=== PATIENT | male | born 1975 | race Caucasian/White ===

== ENCOUNTER 2019-08-09 13:14 | Emergency (ER) | payer MEDICARE, MEDICAID, SELFPAY ==
[2019-08-09 13:24] VITALS: BP 146/99; PULSE 100; RESP 18; TEMP 36.8; O2SAT 98; BMI 25.7
--- NOTE | 2019-08-09 13:35 | XR_ITS ---
WS: [id number] RIGHT HAND: 3 VIEW(S) TECHNIQUE: PA, oblique and lateral. HISTORY: infection right thumb COMPARISON: None available. Abnormal appearance of the distal phalanx of the first finger. There is a lucency involving a signifi cant portion of the distal phalanx with interruption of the cortex. There is a soft tissue ulceration measuring 18 mm adjacent to the proximal phalanx of the first finger. XR/XR hand RT min 3V* [id number] IMPRESSION: 1. Extensive soft tissue edema and ulceration surrounding the first finger. Ul ceration measures 18 mm adjacent to the proximal phalanx. 2. Suspicious for osteomyelitis distal phalanx of the first finger. No histor y of trauma therefore this is less likely fracture.
--- NOTE | 2019-08-09 13:48 | ED_ITS ---
HPI - Wound/Laceration General: Chief Complaint: Wound/Laceration Stated Complaint: RIGHT THUMB BAD INFECTION Time Seen by Provider: 08/09/19 13:27 History of Present Illness: HPI narrative: Patient is a 44-year-old male who presents today with an infection in his right thumb. He said the symptoms started about 3 weeks ago and he has been seen several times in the ER in [place]. On the first visit he was told it was a felon and the doctor cut open the pad o f his thumb. He was put on antibiotics but he does not know what kind. He went back about a week later and the antibiotics were changed to the one he is currently on. He describes it as a large white pill. He does not know what it is called. He says the thumb looks somewhat better and that it is not as swollen but the entire thumb is red, fluctuant with some open areas and some drainage at the base of the thumb. He is here today because of the throbbing pain in the thumb and concerns that is just not going away. He denies IV drug use. He denies diabetes. He does not recall any specific injury but does think he might of gotten a metal shaving in the finger the day before all this started. He is left-handed Onset (ago): week(s) (3) Extremity Location: Right: hand Patient tetanus UTD: Yes Associated symptoms: Reports numbness; Denies chills, fever(s), foreign body sensation, nausea or vomiting Review of Systems General: Reports: 10 or more systems reviewed and unremarkable except in HPI and below Const: Denies: fever(s) or chills Eyes: Denies: change in vision ENMT: Denies: odynophagia Card: Denies: chest pain or swelling of feet/ankles Resp: Denies: dyspnea, productive cough or non-productive cough GI: Denies: abdominal pain, nausea or vomiting : Denies: flank pain Musc: Reports: extremity pain and limited range of motion; Denies: neck pain or back pain Skin/Breast: Denies: rash Neuro: Denies: headache(s), numbness in extremities or weakness in extremities Marshall/Lymph: Denies: easy bruising or easy bleeding PFSH ED PFSH: Social History Smoking and tobacco status: current every day smoker Physical Exam Const: COMMON NORMALS: no acute distress, patient oriented x3, no limitations and alert GENERAL APPEARANCE: cooperative and comfortable HENMT: HEAD & SCALP: normal to inspection FACE & SINUS: normal facial exam Eye: GENERAL EYE: appearance normal, both eyes and all related structures Neck/C-Spine: COMMON NORMALS: supple, no meningeal signs and no JVD Chest: COMMONS NORMALS: normal inspection of the chest Resp: COMMON NORMALS: normal respiratory effort, No use of accessory muscles and clear to auscultation bilaterally AUSCULTATION: clear to auscultation bilaterally Cardio: COMMON NORMALS: no JVD, regular rate, regular rhythm and No murmurs present (Cardio) RATE: regular rate RHYTHM: regular rhythm Back/Pelvis: COMMON NORMALS: thoracic and lumbar spine normal to inspection Extremity: COMMON NORMALS: normal to inspection NARRATIVE EXTREMITY EXAM: Except the right thumb which is quite swollen, the pad of the thumb has a brown waxy appearance to the skin and the proximal phalanx on the palmar side has some fluctuance and appears to be pockets of purulence under the skin. There is an open area on the dorsal surface of the proximal phalanx which is draining purulent discharge. There is no sensation over the distal pad of the thumb. Neuro: COMMON NORMALS: patient oriented x3, moves all extremities, no focal motor deficits and no sensory deficits noted SENSORIUM/ORIENTATION: Yes alert MENINGEAL SIGNS: Yes no meningeal signs Psych: COMMON NORMALS: mental status grossly normal, cooperative and normal affect Skin: COMMON NORMALS: no rashes or lesions noted and turgor normal GENERAL SKIN EXAM: no rashes or lesions noted and turgor normal Course ED course: I spoke with Dr. Michele at [facility]. He would like to see the patient in his office tomorrow at 1 PM. The patient says he will be able to make it up there. For now we will have him continue his current antibiotic. I will give him some pain medicine. We discussed that this could lead to the loss of his thumb if he does not get it appropriately treated. His labs look pretty good with a CRP of 1.2 and only slight elevation in his ESR. White count is normal. X-ray however raise a concern for possible early osteomyelitis. Vital Signs: Vital signs: Vital Signs Temperature 98.3 F 08/09/19 13:24 Pulse Rate 97 08/09/19 15:37 Respiratory Rate 18 08/09/19 15:37 Blood Pressure 142/96 08/09/19 15:37 Pulse Oximetry 98 08/09/19 15:37 MDM - Wound/Laceration Lab Data: Labs: Lab Results 08/09/19 08/09/19 08/09/19 Range/Units 13:55 13:55 13:55 WBC 9.9 (4.0-10.0) 10^3/ uL RBC 4.98 (4.1-5.3) 10^6/u L Hgb 14.8 (11.7-16.6) g/dL Hct 44.6 (42.0-52.0) % MCV 89.6 (80-94) fL MCH 29.7 (28.0-34.0) pg MCHC 33.2 (30.0-36.0) g/dL RDW 11.9 L (12.1-15.1) % Plt Count 518 H (130-400) 10^3/c mm MPV 8.4 (7.4-10.4) fL Neut % (Auto) 60.0 % Lymph % (Auto) 28.9 % Burnett % (Auto) 6.3 % Eos % (Auto) 3.0 % Baso % (Auto) 0.7 % Neut # (Auto) 5.9 (1.8-7.7) 10^3/u L Lymph # (Auto) 2.9 (0.8-4.8) 10^3/u L Burnett # (Auto) 0.6 (0.2-0.9) 10^3/u L Eos # (Auto) 0.3 (0.0-0.8) 10^3/u L Baso # (Auto) 0.1 (0.0-0.1) 10^3/u L Nucleated RBC % (a uto) 0 % Nucleated RBCs # 0.0 /100WBC ESR 25 H (0-10) mm/hr Sodium 140 (136-145) mmol/L Potassium 4.1 (3.5-5.1) mmol/L Chloride 103 (98-107) mmol/L Carbon Dioxide 24 (22-29) mmol/L Anion Gap 17.1 (5-19) BUN 13 (6-20) mg/dL Creatinine 0.9 (0.7-1.2) mg/dL GFR Calculation 90.8 (90-130) mL/min Glucose 101 (65-115) mg/dL Calculated Osmolal ity 286 (285-295) mOsm/k g Calcium 10.2 (8.5-10.5) mg/dL Total Bilirubin 0.4 (0.15-1.2) mg/dL AST 26 (0-40) U/L ALT 28 (0-41) U/L Alkaline Phosphata se 100 (40-130) IU/L C-Reactive Protein 1.2 (0.0-4.9) mg/L Total Protein 7.8 (6.6-8.7) g/dL Albumin 4.5 (3.5-5.2) g/dL Globulin 3.3 (1.3-4.6) g/dL Discharge Plan Discharge Patient Disposition: Home, Self-Care Clinical Impression: Cellulitis and abscess of finger, unspecified Condition: Stable Prescriptions: New hydrocodone-acetaminophen 5-325 mg tablet 1 tab PO Q6H PRN (Reason: pain) Qty: 14 RF: 0 No Action ciprofloxacin HCl 500 mg tablet 500 mg PO BID RF: 0 sulfamethoxazole-trimethoprim 800-160 mg tablet 2 tab PO BID RF: 0 Ultram 50 mg tablet 50 mg PO Q6H PRN (Reason: Pain) RF: 0 Discharge Orders: Discharge Order (Routine); Ordered 08/09/19 Ordered By: Maday Fernandez Referrals: Devin Lawson MD [Referring] - 08/10/19 1:00 pm ([facility], third floor. Bring the disk with the xray and the papers from today's visit. Also bring the antibiotic bottles from the other ED visits. ) Discharge Diet: Usual diet Discharge Activity: Resume usual activity Patient Instructions: Cellulitis (ED) Activity Restrictions/Additional Instructions: Be sure to follow up tomorrow with Dr. Lawson in [place]. Discharge Date/Time: 08/09/19 15:44 Coding Level of Care Code ED Insurance Service Representative for Thania Fwd Exam Comprehensive
[2019-08-09 14:05] LABS: Basophils # 0.1 10^3/uL (0.0-0.1); Basophils % 0.7 %; Eosinophils # 0.3 10^3/uL (0.0-0.8); Hematocrit 44.6 % (42.0-52.0); Hemoglobin 14.8 g/dL (11.7-16.6); Lymphocytes # 2.9 10^3/uL (0.8-4.8); Lymphocytes % 28.9 %; Mean Corpuscular HGB Conc 33.2 g/dL (30.0-36.0); Mean Corpuscular Hemoglobin 29.7 pg (28.0-34.0); Mean Corpuscular Volume 89.6 fL (80-94); Mean Platelet Volume 8.4 fL (7.4-10.4); Monocytes # 0.6 10^3/uL (0.2-0.9); Monocytes % 6.3 %; Neutrophils # 5.9 10^3/uL (1.8-7.7); Nucleated Red Blood Cells % 0 %; Platelet Count 518 10^3/cmm (130-400); Red Blood Count 4.98 10^6/uL (4.1-5.3); Red Cell Distribution Width 11.9 % (12.1-15.1); White Blood Count 9.9 10^3/uL (4.0-10.0)
[2019-08-09 14:28] LABS: Alanine Aminotransferase 28 U/L (0-41); Albumin Level 4.5 g/dL (3.5-5.2); Alkaline Phosphatase 100 IU/L (40-130); Anion Gap 17.1 (5-19); Aspartate Amino Transferase 26 U/L (0-40); Blood Urea Nitrogen 13 mg/dL (6-20); C Reactive Protein 1.2 mg/L (0.0-4.9); Calcium 10.2 mg/dL (8.5-10.5); Carbon Dioxide 24 mmol/L (22-29); Chloride 103 mmol/L (98-107); Globulin 3.3 g/dL (1.3-4.6); Glomerular Filtration Rate 90.8 mL/min (90-130); Glucose 101 mg/dL (65-115); Osmolality Calculated 286 mOsm/kg (285-295); Potassium 4.1 mmol/L (3.5-5.1); Sodium 140 mmol/L (136-145); Total Bilirubin 0.4 mg/dL (0.15-1.2); Total Protein 7.8 g/dL (6.6-8.7)
[2019-08-09 14:52] LABS: Erythrocyte Sedimentation Rate 25 mm/hr (0-10)
[2019-08-09] MEDS: HYDROcodone-acetaminophen 5-325 mg Tablet 2 TAB PO (15:31)
[2019-08-09 15:37] VITALS: BP 142/96; PULSE 97; RESP 18; O2SAT 98
== END 2019-08-09 15:44 | disposition home or self-care (01) ==
PROVIDERS: Emergency Provider Emergency Medicine
DX: L03.011 Cellulitis of right finger (principal); L02.511 Cutaneous abscess of right hand; F17.210 Nicotine dependence, cigarettes, uncomplicated
CPT/HCPCS: 12345; 36415; 73130; 80053; 85025; 85651; 86140; 99281; 99283

== ENCOUNTER 2023-09-26 22:35 | Emergency (ER) | payer MEDICARE, MEDICAID, SELFPAY ==
[2023-09-26 22:43] VITALS: BP 125/78; PULSE 82; RESP 17; TEMP 37; O2SAT 97; BMI 24.7
--- NOTE | 2023-09-26 23:44 | W.ED.BACK ---
HPI - Back Pain/Injury General: Chief Complaint: Back Pain/Injury Stated Complaint: Lower back pain Time Seen by Provider: 09/26/23 22:37 History of Present Illness: 48-year-old male patient comes in for lower back pain. On exam patient appears nontoxic. Patient appears no acute distress. Patient has a what he describes as a knot to his right lower back that he is concerned about. Patient is at this time being treated for back pain with steroids, muscle relaxer, NSAIDs. Review of Systems General: Reports: 10 or more systems reviewed and unremarkable except in HPI and below Musc: Reports: back pain PFSH ED PFSH: Social History Smoking and tobacco/nicotine status: current every day tobacco/nicotine user Physical Exam Const: COMMON NORMALS: alert HENMT: COMMON NORMALS: normocephalic HEAD & SCALP: normocephalic Neck/C-Spine: COMMON NORMALS: full ROM Resp: COMMON NORMALS: normal respiratory effort and clear to auscultation bilaterally AUSCULTATION: clear to auscultation bilaterally Cardio: COMMON NORMALS: regular rate and regular rhythm RATE: regular rate RHYTHM: regular rhythm GI: COMMON NORMALS: Soft to palpation and non-tender PALPATION: Yes Soft to palpation Back/Pelvis: LUMBAR SPINE/LOWER BACK: Yes paraspinal muscle tenderness Extremity: COMMON NORMALS: full ROM Neuro: SENSORIUM/ORIENTATION: Yes alert Skin: COMMON NORMALS: turgor normal GENERAL SKIN EXAM: turgor normal Course Vital Signs: Vital signs: Vital Signs Temperature 98.6 F 09/26/23 22:43 Pulse Rate 82 09/26/23 22:43 Respiratory Rate 17 09/26/23 22:43 Blood Pressure 125/78 09/26/23 22:43 Pulse Oximetry 97 09/26/23 22:43 Oxygen Delivery Me thod Room Air 09/26/23 22:43 MDM - Back Pain/Injury Medical Decision Making 48-year-old male patient comes in for concerns of a muscle knot to his right lower back. Patient appears nontoxic. Patient appears no acute distress. Patient has a palpable knot to the right lower back around L4. No spinal tenderness is noted. Differential diagnosis intervertebral disc disease, facet arthropathy, lumbar strain, cyst of the muscle. Reviewed exam with patient with recommendation for treatment and follow-up. Patient reported understanding agreed to plan. No x-rays were done because no acute injuries were noted. No radiology studies performed this visit Discharge Plan Discharge Patient Disposition: Home Clinical Impression: Strain of lumbar region Qualifiers: Encounter type: initial encounter Qualified Code(s): S39.012A - Strain of muscle, fascia and tendon of lower back, initial encounter Condition: Stable Prescriptions: No Action methocarbamol 750 mg tablet 750 mg PO TID Qty: 30 0RF prednisone 20 mg tablet 40 mg PO DAILY 5 Days Qty: 10 0RF ibuprofen 600 mg tablet 600 mg PO Q8H PRN (Reason: pain) Qty: 30 0RF Discharge Orders: Discharge ED (Routine); Ordered 09/26/23 Ordered By: Syed Cristina Referrals: Marquise Disla MD [Primary Care Provider] - Discharge Diet: Usual diet Discharge Activity: Increase activity as tolerated Patient Instructions: Back Pain (ED) Activity Restrictions/Additional Instructions: Follow-up with primary care. Continue with physical therapy and routine medications as prescribed. Coding Level of Care Code ED Director Of Photography for Thania Ravi
== END 2023-09-27 00:02 | disposition home or self-care (01) ==
PROVIDERS: Emergency Provider Nurse Practitioner Family; PCP Family Medicine
DX: S39.012A Strain of muscle, fascia and tendon of lower back, initial encounter (principal); Z72.0 Tobacco use; X58.XXXA Exposure to other specified factors, initial encounter
CPT/HCPCS: 99281

== ENCOUNTER → 2023-09-30 14:54 | Outpatient (BNVA) | payer MEDICARE, MEDICAID, SELFPAY | PROVIDERS: PCP Family Medicine; Visit Provider Student in an Organized Health Care Education/Training Program | DX: M65.332 Trigger finger, left middle finger | CPT/HCPCS: 73130; 99203 ==

== ENCOUNTER → 2024-07-25 09:01 | Outpatient (BNVA) | payer MEDICARE, MEDICAID, SELFPAY | PROVIDERS: PCP Family Medicine; Visit Provider Internal Medicine Cardiovascular Disease | DX: R55 Syncope and collapse (principal); R07.9 Chest pain, unspecified; M41.9 Scoliosis, unspecified; Z82.49 Family history of ischemic heart disease and other diseases of the circulatory system; F17.200 Nicotine dependence, unspecified, uncomplicated; R06.02 Shortness of breath | CPT/HCPCS: 99204 ==

== ENCOUNTER 2024-08-30 10:39 | Outpatient (CLI) | payer MEDICARE, MEDICAID, SELFPAY ==
--- NOTE | 2024-08-30 | ECG_ITS ---
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 Interpretive Statements Lung unchanged pre/post procedure; Intraprocedure shortess of breath; Symptoms resoled by discharge PROCEDURE: The baseline electrocardiogram showed [normal sinus rhythm with diffuse nonspecific T wave changes. Incomplete right bundle branch block pattern. Possible old high lateral wall FL.. At the baseline, the patient's blood pressure was 127/97 mm Hg with a heart rate of 81. The patient exercised for 14 minutes and 29 send on a standard Robert protocol. Patient attained a maximum heart rate of 145 beats per minute(85% of the maximum predicted heart rate) with a blood pressure at the peak exercise of was not obtained. The EKG at the peak exercise revealed nonspecific ST-T changes. Patient did not have any chest pain or any significant arrhythmis with the exercise Sestamibi was injected 1 minute prior to the peak exercise During the recovery phase, there were no new changes. Blood pressure at the end of the recovery phase was 123/83 mm Hg with a heart rate of 97 per minute. CONCLUSION: 1. No significant EKG changes with the treadmill exercise 2. No exercise-induced chest pain or cardiac arrhythmia 3. Good exercise tolerance, attained a maximum of 16 point METs 4. Sestamibi/Sestamibi perfusion results pending; see separate report. Electronically Signed On 09-03-2024 22:18:21 CDT by Oneil Perez M.D. [email or web address]
[2024-08-30 10:42] VITALS: BMI 25.8
--- NOTE | 2024-08-30 10:43 | NMCV_ITS ---
NM roger perf SPECT r/s* [id number] Aman Dos Santos Age: 49 Gender: M : 1975 Exam Date: 08/30/2024 11:32 Ordering Phys: Narciso Magdaleno MD ([email or web address]) Technologist: SILVER sOei Exam Location: [facility] Indications: cp STRESS TEST Please see separate stress test report in [facility] for full findings IMAGE PROTOCOL Rest/Stress 1 Exercise Day Radiopharmaceutical Dose (mCi) Administration Site Administered by Rest: Tc-99m 10.3 IV SILVER Osei Sestamibi Stress:Tc-99m 32.7 IV Nyla Lang, SR. LOGISTICS ANALYST Sestamibi Rest: 30-Aug-2024 60 Discovery 630 Stress: 30-Aug-2024 30 Discovery 630 Radiopharmaceutical was injected at 85 % maximum heart rate. Images obtained in supine and prone position. SPECT RESULTS Technical Quality: Good Raw Data Analysis: Normal Image Corrections: No attenuation or motion correction applied Summed Stress Score: 0 Summed Rest Score: 0 Summed Difference Score: 0 PERFUSION FINDINGS Uniform myocardial tracer uptake with no significant perfusion abnormalities FUNCTIONAL RESULTS (calculated via Gated SPECT) Stress Image LV EF (%): 55 Stress EDV (mL):106 TID: 0.81 Stress ESV (mL):48 FUNCTIONAL FINDINGS: Segmental wall motion analysis revealing no gross wall motion abnormalities IMPRESSIONS 1. Myocardial perfusion imaging revealing uniform myocardial tracer uptake with no significant Perfusion normalities. 2. Normal LV ejection fraction of 55%. 3. LV wall motion analysis revealing no gross wall motion abnormalities. 4. LV volume, upper limit of normal Low probability for coronary ischemia, based on the above findings No similar previous studies are available for comparison Dr Oneil Perez MD [facility] (Electronically Signed) Final Date: 30 August 2024 16:32 S
[2024-08-30 12:28] VITALS: BP 123/83; PULSE 97
== END 2024-08-30 10:40 | disposition home or self-care (01) ==
LOC: CDL 10:41
PROVIDERS: PCP Family Medicine; Visit Provider Internal Medicine Cardiovascular Disease
DX: R07.9 Chest pain, unspecified (principal)
CPT/HCPCS: 36415; 78452; 93017; A9500